=== PATIENT | female | born 1945 | race Caucasian/White ===

== ENCOUNTER 2016-04-17 12:46 | Inpatient (IN) | payer MEDICARE, OTHER ==
[~2016-04-17] VITALS: Ht 172.7 cm; Wt 61.7 kg
[~2016-04-17 12:46] MED LIST: DIPH1TAB36 PO; FEMA2.5T PO; LEVO100T4 PO; OXYC1SOL5 PO; VITA200017 PO
[2016-04-18] MEDS ORDERED: PROPOFOL 200 MG/20 ML AMP IV ONE (08:33)
[2016-04-18] MEDS ORDERED: ePHEDrine/NS 25 MG/5 ML SYR IV ONE (08:33)
[2016-04-18] MEDS ORDERED: PHENYLEPH/NS 1000 MCG/10 ML SYR IV ONE (08:34)
[2016-04-18] MEDS ORDERED: ONDANSETRON HCL 4 MG/2 ML VIAL IV PUSH ONE (08:34)
[2016-04-18] MEDS ORDERED: LACTATED RINGER'S 1000 ML INJ 1,000 ML IV ONE (08:34)
[2016-04-18] MEDS ORDERED: INSULIN HUMAN REGULAR 1,000 UNITS/10 ML VIAL SQ PRN (13:45)
[2016-04-18] MEDS ORDERED: METOPROLOL TARTRATE 25 MG TAB PO PRN (13:45)
[2016-04-18] MEDS ORDERED: SODIUM CHLORID 0.9% 500 ML IV SCH (13:45)
[2016-04-18] MEDS ORDERED: LACTATED RINGER'S 1000 ML IV SCH (13:45)
[2016-04-18] MEDS ORDERED: ceFAZolin 2 GM PREMIX 50 ML IV SCH (14:00)
[2016-04-18] MEDS ORDERED: METRONIDAZOLE 500 MG/100 ML ISONTONIC SOLN IV SCH (14:00)
[2016-04-18] MEDS ORDERED: ALVIMOPAN 12 MG CAPSULE - On Call PO SCH (14:00)
[2016-04-18 14:15] VITALS: BP 131/77; PULSE 70; RESP 18; TEMP 98.8; O2SAT 100
[2016-04-18 14:20] LABS: BASOPHIL # 0.1 TH/MM3 (0-0.2); BASOPHIL % 1.3 % (0.0-2.0); EOSINOPHIL # 0.4 TH/MM3 (0-0.4); EOSINOPHIL % 6.6 % (0.0-4.0); HEMATOCRIT 36.7 % (35.0-46.0); HEMO FLAGS DIFF FINAL; LYMPH % 23.5 % (9.0-44.0); LYMPHOCYTE # 1.5 TH/MM3 (1.0-4.8); MEAN CELL VOLUME 100.1 FL (80.0-100.0); MEAN CORPUSCULAR HEMOGLOBIN 33.7 PG (27.0-34.0); MEAN CORPUSCULAR HGB CONC 33.7 % (32.0-36.0); MONO % 6.8 % (0.0-8.0); NEUT % 61.8 % (16.0-70.0); PLATELET COUNT 285 TH/MM3 (150-450); RED BLOOD COUNT 3.67 MIL/MM3 (4.00-5.30); RED CELL DISTRIBUTION WIDTH 12.9 % (11.6-17.2); WHITE BLOOD COUNT 6.5 TH/MM3 (4.0-11.0)
[2016-04-18] MEDS ORDERED: CHOL1TAB42 PO (14:24)
[2016-04-18] MEDS ORDERED: AMBI5TAB PO (14:25)
[2016-04-18] MEDS ORDERED: OXYC1TAB36 PO (14:26)
[2016-04-18] MEDS ORDERED: LEVO88TA2 PO (14:26)
[2016-04-18] MEDS ORDERED: NALO1TAB2 PO (14:27)
[2016-04-18] MEDS ORDERED: LETR2.5T PO (14:27)
[2016-04-18] MEDS ORDERED: MIRA25TA PO (14:29)
[2016-04-18] MEDS ORDERED: OMEP20TA PO (14:29)
[2016-04-18 14:37] LABS: BICARBONATE 28.1 MEQ/L (21.0-32.0); POTASSIUM 3.6 MEQ/L (3.5-5.1)
[2016-04-18] MEDS ORDERED: GELFOAM SIZE 100 ONE (14:46)
--- NOTE | 2016-04-18 15:06 | RADRPT ---
EXAM DATE/TIME: 04/18/2016 13:53 [place] COMPARISON: No previous studies available for comparison. INDICATIONS : Evaluate for pneumonia, pneumothorax or cummunicable Colon resection MEDICAL HISTORY : None. SURGICAL HISTORY : Mastectomy, left. ENCOUNTER: Initial ACUITY: 1 day PAIN SCORE: 0/10 LOCATION: chest FINDINGS: A single view of the chest demonstrates right Edkfau-d-Lklo superior vena cava. No focal consolidatio n. Remote granulomatous disease. Surgical clips left axilla. Scoliosis CONCLUSION: 1. No active disease. Remote granulomatous disease. Holland Zamora MD on April 18, 2016 at 15:03 Board Certified Radiologist. This report was verified electronically.
[2016-04-18] MEDS ORDERED: ACETAMINOPHEN 1000 MG/100 ML VIAL IV ONE (15:25)
[2016-04-18] MEDS ORDERED: FAMOTIDINE 20 MG/2 ML VIAL ONE (15:25)
[2016-04-18] MEDS ORDERED: fentaNYL CITRATE 250 MCG/5 ML AMP ONE ×2 (15:26→18:19)
[2016-04-18] MEDS ORDERED: MIDAZOLAM HCL 2 MG/2 ML VIAL ONE (15:26)
[2016-04-18] MEDS ORDERED: SUGAMMADEX SODIUM 200 MG/2 ML VIAL IV PUSH ONE ×2 (16:43)
[2016-04-18] MEDS ORDERED: HYDROmorphone HCL PF 1 MG/ML VIAL ONE (18:01)
--- NOTE | 2016-04-18 18:01 | PD.OP ---
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 Operation and Findings: ascites, diffuse peritoneal mets, one biopsied and sent to path. Obstructing tumorous masses in pelvis, RLQ involving small bowel and a large transverse colon mass. 20 serbian TERESA G tube placed for venting. EBL less than 200 ml. Toni Bowers MD Apr 18, 2016 18:01
[2016-04-18] MEDS ORDERED: *HYDROmorphone PF 1 MG VIAL PERIprocedural Use ONLY ONE ×3 (18:08→18:36)
[2016-04-18] MEDS ORDERED: NALOXONE HCL 0.4 MG/ML AMP IV PRN (18:15)
[2016-04-18] MEDS ORDERED: SODIUM CHLORIDE 0.9% FLUSH 5 ML FLUSH IVF PRN (18:15)
[2016-04-18] MEDS ORDERED: ZOLPIDEM TARTRATE 5 MG TAB PO PRN (18:15)
[2016-04-18] MEDS ORDERED: Post-op Orders (for Pharmacy) MISC XX ONE (18:15)
[2016-04-18] MEDS ORDERED: diphenhydrAMINE HCL 50 MG/ML VIAL IVP PRN (18:15)
[2016-04-18] MEDS ORDERED: HYDROmorphone HCL PF 1 MG/ML VIAL IV PUSH PRN (18:30)
[2016-04-18] MEDS ORDERED: LORazepam 2 MG/ML VIAL IV PUSH PRN (18:30)
[2016-04-18] MEDS: LACTATED RINGER'S 1000 ML INJ 1,000 ML IV SCH (18:30)
[2016-04-18] MEDS ORDERED: *hydrOXYzine 25 MG VIAL PERIprocedural Use ONLY IM ONE (18:48)
[2016-04-18] MEDS: MORPHINE SULFATE 30 MG/30 ML PCA IV SCH ×2 (19:05→23:19)
[2016-04-18] MEDS: PANTOPRAZOLE SODIUM 40 MG VIAL IV PUSH SCH (19:30)
[2016-04-18 20:10] VITALS: BP 91/52; PULSE 78; RESP 17; TEMP 96.2; O2SAT 94
[2016-04-18 20:46] VITALS: O2SAT 94
[2016-04-18] MEDS: SODIUM CHLORIDE 0.9% FLUSH 5 ML FLUSH IVF SCH (21:00)
[2016-04-18 21:15] VITALS: RESP 18
[2016-04-18] MEDS: PCA - TOTAL MG MORPHINE DELIVERED PER SHIFT SCH (22:00)
[2016-04-18 23:52] VITALS: BP 99/57; PULSE 74; RESP 17; TEMP 97; O2SAT 95
[2016-04-19] VITALS (9 sets, daily range): BP systolic 105–139; BP diastolic 57–77; PULSE 71–83; RESP 16–20; TEMP 96.8–98.4; O2SAT 95–98
[2016-04-19] MEDS: LACTATED RINGER'S 1000 ML INJ 1,000 ML IV SCH ×2 (04:02→12:45)
[2016-04-19] MEDS: ONDANSETRON HCL 4 MG/2 ML VIAL IV PRN ×4 (04:28→19:36)
[2016-04-19] MEDS: PCA - TOTAL MG MORPHINE DELIVERED PER SHIFT SCH ×3 (05:35→22:00)
[2016-04-19] MEDS: LEVOTHYROXINE SODIUM 88 MCG TAB PO SCH (05:37)
[2016-04-19] MEDS: MORPHINE SULFATE 30 MG/30 ML PCA IV SCH ×3 (05:40→17:24)
[2016-04-19 05:47] LABS: AUTOMATED NEUTROPHIL # 6.5 TH/MM3 (1.8-7.7); BASOPHIL % 0.4 % (0.0-2.0); HEMATOCRIT 29.5 % (35.0-46.0); HEMO FLAGS DIFF FINAL; LYMPH % 8.7 % (9.0-44.0); LYMPHOCYTE # 0.7 TH/MM3 (1.0-4.8); MEAN CELL VOLUME 100.8 FL (80.0-100.0); MEAN CORPUSCULAR HEMOGLOBIN 33.9 PG (27.0-34.0); MEAN CORPUSCULAR HGB CONC 33.6 % (32.0-36.0); MONO % 4.8 % (0.0-8.0); NEUT % 86.1 % (16.0-70.0); PLATELET COUNT 240 TH/MM3 (150-450); RED BLOOD COUNT 2.93 MIL/MM3 (4.00-5.30); RED CELL DISTRIBUTION WIDTH 12.6 % (11.6-17.2); WHITE BLOOD COUNT 7.5 TH/MM3 (4.0-11.0)
[2016-04-19 06:18] LABS: BICARBONATE 20.7 MEQ/L (21.0-32.0); POTASSIUM 4.2 MEQ/L (3.5-5.1)
[2016-04-19] MEDS: ALVIMOPAN 12 MG CAPSULE - Post-op dosing PO SCH ×2 (07:59→19:35)
[2016-04-19] MEDS: CHOLECALCIFEROL (VIT D3) 1000 UNIT TAB PO SCH (07:59)
[2016-04-19] MEDS ORDERED: NALOXEGOL 25 MG PO SCH ×2 (09:00)
[2016-04-19] MEDS ORDERED: MIRABEGRON 25 MG PO SCH (09:00)
[2016-04-19] MEDS ORDERED: LETROZOLE 2.5 MG PO SCH (09:00)
[2016-04-19] MEDS ORDERED: NON-FORMULARY DRUG (Mirabegron (Myrbetriq) 25 MG) PO SCH (09:00)
[2016-04-19] MEDS ORDERED: PT:LETROZOLE 2.5 MG PO SCH (09:00)
--- NOTE | 2016-04-19 11:16 | HHI.PR ---
Subjective Subjective Notes awake, alert. Has met with Dr Leroy of palliative care. Objective Vitals/I&O Vital Signs Date Time Temp Pulse Resp B/P Pulse Ox O2 Delivery O2 Flow Rate FiO2 04/19/16 09:15 98 21 04/19/16 08:00 97.3 72 18 105/57 04/18/16 19:45 Nasal Cannula 2 Labs Laboratory Tests Test 04/18/16 04/19/16 14:05 04:16 White Blood Count 6.5 7.5 Red Blood Count 3.67 2.93 Hemoglobin 12.4 9.9 Hematocrit 36.7 29.5 Mean Corpuscular Volume 100.1 100.8 Mean Corpuscular Hemoglobin 33.7 33.9 Mean Corpuscular Hemoglobin 33.7 33.6 Concent Red Cell Distribution Width 12.9 12.6 Platelet Count 285 240 Mean Platelet Volume 8.0 8.2 Neutrophils (%) (Auto) 61.8 86.1 Lymphocytes (%) (Auto) 23.5 8.7 Monocytes (%) (Auto) 6.8 4.8 Eosinophils (%) (Auto) 6.6 0.0 Basophils (%) (Auto) 1.3 0.4 Neutrophils # (Auto) 4.0 6.5 Lymphocytes # (Auto) 1.5 0.7 Monocytes # (Auto) 0.4 0.4 Eosinophils # (Auto) 0.4 0.0 Basophils # (Auto) 0.1 0.0 CBC Comment DIFF FINAL DIFF FINAL Differential Comment Sodium Level 138 138 Potassium Level 3.6 4.2 Chloride Level 98 101 Carbon Dioxide Level 28.1 20.7 Anion Gap 12 16 Blood Urea Nitrogen 15 10 Creatinine 0.67 0.42 Estimat Glomerular Filtration 87 149 Rate Random Glucose 80 108 Calcium Level 9.8 8.1 Blood Type A POSITIVE Antibody Screen NEGATIVE Cardiovascular: Regular Lungs: Clear Abdomen: Non-distended, Other (dressing dry with minimal drainage. G tube dressing dry.), Post-op tenderness Extremities: No edema A/P Assessment and Plan POD 1 exp lap G tube, unresectable diffuse mets cancer with obstruction, large tumorous masses RLQ involving SB and cecum, transverse colon and sigmoid colon. Palliative care. DNR. Pain control. Hospice evaluation. Toni Bowers MD Apr 19, 2016 11:16
--- NOTE | 2016-04-19 11:17 | PD.CONS ---
Consult Service Palliative Care Consult Requested By Dr. Bowers . Primary Care Physician Nasim Patterson DO . Reason for Consultation a. To assist with evaluation and management of symptoms including: Pain, nausea b. To assist medical decision maker(s) with: better understanding of current medical conditions; weighing benefits/burdens of medical treatment options; making medical treatment decisions. . HPI History of Present Illness This 70-year-old female, with a past history of papillary serous uterine cancer , prior surgery and chemotherapy in 2014, and a remote history of breast cancer , was admitted and taken to the operating room because of a near total bowel obstruction. The patient initially presented in February 2014 with postmenopausal bleeding, and was ultimately found to have stage III C papillary serous carcinoma, with positive nodes and positive peritoneal nodules during the initial surgery. She was treated with Taxol and carboplatin for 6 cycles, and was followed by [facility] oncology until August 2015. The patient reports that because of insurance changes she then was followed by her primary doctor. The patient began developing worsening abdominal and pelvic pain in the summer of 2015, and that has steadily worsened over the past 2 or 3 months. The patient reports she underwent colonoscopy, colonography, and [address] or PET scans over the last 5 months. As her pain worsened, she was referred to Dr. Mendoza a few days ago. A barium enema was ordered, and her colon was essentially obstructed in the sigmoid area. She was taken to the operating room yesterday, where 3 large areas of mass involving bowel was noted, and innumerable omental and peritoneal nodules were present. Biopsies were sent. After discussion with the patient and her , who adamantly did not want an ostomy, the surgery was concluded after a G-tube was placed (for possible decompression in the future). The patient had been using oxycodone for her pain at home, but says it was inadequate. Now, postop day #1, she reports that her pain is "not that bad " and she does not have nausea at this time. Palliative Care was consulted to assist with symptom management, and to enter into discussions with family and the patient regarding her illnesses, the prognosis, and the benefits and burdens of the various treatment options. . Function/Cognitive Trajectory The patient has been declining over the past several months. She has lost a few pounds, and has gotten weaker. She was limited in her functionality because moving around would make the abdominal and pelvic pain worse, and her "was doing pretty much everything for me." . Review of Systems Constitutional: COMPLAINS OF: Weight loss Endocrine: DENIES: Polyuria Eyes: DENIES: Eye inflammation Ears, nose, mouth, throat: DENIES: Epistaxis Respiratory: DENIES: Cough, Shortness of breath Cardiovascular: COMPLAINS OF: Lower Extremity Edema, DENIES: Chest pain, Dyspnea on Exertion Gastrointestinal: COMPLAINS OF: Abdominal pain, Nausea, Vomiting, Bloating, DENIES: Diarrhea, Vomiting blood Genitourinary: COMPLAINS OF: Hematuria (a few episodes a couple months ago) Musculoskeletal: COMPLAINS OF: Back pain Integumentary: DENIES: Rash Hematologic/Lymphatics: DENIES: Bruising Immunologic/Allergic: DENIES: Urticaria Neurologic: DENIES: Localized weakness, Seizures Psychiatric: DENIES: Hallucinations, Agitation Past Family Social History Coded Allergies: No Known Allergies (Unverified , 04/18/16) Past Medical History * Obstructing colon mass, surgery 04/18/16 * Diffuse pelvic/abdominal metastatic disease * History of papillary serous carcinoma February 2014, s/p surgery and 6 rounds of Taxol/carboplatin * Worsening abdominal pain and debility for several months * History of breast cancer 2012 . Past Surgical History * Esophageal dilatation 2002 * Mastectomy 2012 * Removal of implant due to infection 2013 * Skin flap to open chest wound 2014 * Left breast lumpectomy * Hysterectomy, BSO, and resection of pelvic nodes and peritoneal nodules February 2014 * Exploratory laparotomy, G-tube 04/18/16 . Reported Medications Oxycodone . Current Medications Medications (Trade) Dose Ordered Sig/Iraj Route Start Time Stop Time Status Last Admin Alvimopan 12 mg 12 mg BID PO 04/19/16 09:00 04/25/16 21:01 04/19/16 07:59 (Lr 1000 ml Inj) 1,000 ml @ 100 mls/hr Q10H IV 04/18/16 18:02 04/19/16 04:02 (NS Flush) 2 ml UNSCH PRN IVF 04/18/16 18:15 (NS Flush) 2 ml BID IVF 04/18/16 21:00 (Percocet 5-325 Mg) 2 tab Q4H PRN PO 04/18/16 18:15 (Zofran Inj) 4 mg Q4H PRN IV 04/18/16 18:15 04/19/16 04:28 (Benadryl Inj) 50 mg Q6H PRN IVP 04/18/16 18:15 (Narcan Inj) 0.4 mg UNSCH PRN IV 04/18/16 18:15 (Morphine 1 Mg/ ml BUSINESS SUPPORT ASSOCIATE) 30 mg UNSCH IV 04/18/16 18:15 04/19/16 05:40 BUSINESS SUPPORT ASSOCIATE Dosage Infused (Pha) 1 Q8HR .XX 04/18/16 22:00 04/19/16 05:35 (Synthroid) 88 mcg DAILY@06 PO 04/19/16 06:00 (Ambien) 5 mg HS PRN PO 04/18/16 18:15 04/18/16 21:16 (Vitamin D3) 2,000 units DAILY PO 04/19/16 09:00 04/19/16 07:59 (Protonix Inj) 40 mg Q24H IV PUSH 04/18/16 20:00 04/18/16 19:30 (Dilaudid Pf Inj) 1 mg Q4H PRN IV PUSH 04/18/16 18:30 (Ativan Inj) 1 mg Q4H PRN IV PUSH 04/18/16 18:30 Patient Own Medication PT OWN MED: DAILY PO 04/19/16 09:00 Hold Patient Own Medication PT OWN MED: MIRABEG... DAILY PO 04/19/16 09:00 Hold Patient Own Medication PT OWN MED: MOVANTIK(NALOXEGOL) 25 MG PO DAILY DAILY PO 04/19/16 09:00 Hold Family History The patient's father at age 78 of complications from a stroke. Her mother of breast cancer at age 63. One brother of pancreatic cancer, and another brother of complications of polio at the age of 54. A maternal aunt also had breast cancer. .. Substance Use Tobacco: None. Alcohol: Occasional. Prescription med abuse: None. Illicits: None. . Psychosocial History The patient was born in [place], grew up in [place], and moved to [place] in the . She has been 4 times, currently for 21 years: "I finally got it right." She has no children, and her has no children. 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 . Spiritual/Cultural Factors The patient has a Cheondoism background, but has been unaffiliated with any area anglican or clergy in recent years. She does want to see a fire claims adjuster now. . Living Will: Never completed Health Care Surrogate: Never completed Durable Power of Footwear Machinery Instructor: Never completed Today's verbally stated goals: The patient wants to transition to comfort focused care now, and would like to speak with hospice. She does not want to be on life support or be resuscitated. . Family/friends goals: The patient's supports her goals. . Ethical and Legal Issues There are no ethical issues that would impact her care or decision-making at this time. The patient has capacity for decision-making. When she loses that capacity as her disease progresses, her will be the decision-making proxy. . Physical Exam Vital Signs Date Time Temp Pulse Resp B/P Pulse Ox O2 Delivery O2 Flow Rate FiO2 04/19/16 09:15 98 21 04/19/16 08:00 97.3 72 18 105/57 98 04/19/16 06:11 16 04/19/16 06:00 16 04/19/16 05:40 16 04/19/16 05:35 16 04/19/16 04:00 96.9 83 17 119/68 96 04/18/16 23:52 97.0 74 17 99/57 95 04/18/16 23:19 18 04/18/16 22:00 16 04/18/16 21:15 18 04/18/16 20:46 94 21 04/18/16 20:10 96.2 78 17 91/52 94 04/18/16 19:45 97.6 81 14 124/76 99 Nasal Cannula 2 04/18/16 19:30 79 14 122/85 100 Nasal Cannula 2 04/18/16 19:15 78 15 132/71 99 Nasal Cannula 2 04/18/16 19:05 14 04/18/16 19:00 74 15 134/74 99 Nasal Cannula 2 04/18/16 18:45 71 15 133/78 99 Nasal Cannula 2 04/18/16 18:30 78 16 142/84 99 Nasal Cannula 4 04/18/16 18:15 76 16 137/76 99 Nasal Cannula 4 04/18/16 18:00 96.9 86 16 128/86 100 Simple Mask 8 04/18/16 14:15 98.8 70 18 131/77 100 04/18/16 04/19/16 19:00 07:00 Intake Total 1300 ml 2902 ml Output Total 175 ml 525 ml Balance 1125 ml 2377 ml Intake Oral 720 ml IV Total 2182 ml Other 1300 ml Output Urine Total 75 ml 525 ml Estimated Blood Loss 100 ml Exam CONSTITUTIONAL/GENERAL: This is a thin patient, in no apparent distress. TUBES/LINES/DRAINS: IV access, G-tube, SCDs, Greenberg SKIN: No jaundice, rashes, or lesions. Ecchymoses on upper extremities. No wounds seen anteriorly. Skin temperature appropriate. Not diaphoretic. HEAD: Atraumatic. Normocephalic. EYES: Pupils equal and round and reactive. Extraocular motions intact. No scleral icterus. No injection or drainage. Fundi not examined. ENT: Hearing grossly normal. Nose without bleeding or purulent drainage. Throat without visible erythema, exudates, masses, or lesions. NECK: Trachea midline. Supple, nontender. No palpable thyroid enlargement or nodularity. CARDIOVASCULAR: Regular rate and rhythm without murmurs, gallops, or rubs. No JVD. Peripheral pulses symmetric. RESPIRATORY/CHEST: Symmetric, unlabored respirations. Clear to auscultation. Breath sounds equal bilaterally. No wheezes, rales, or rhonchi. GASTROINTESTINAL: Abdomen soft, and nondistended. No hepato-splenomegaly, and a bandage covers the midline incision. No guarding. Bowel sounds are diminished but present. GENITOURINARY: Without palpable bladder distension. Greenberg catheter in place. MUSCULOSKELETAL: Extremities without clubbing, cyanosis, or edema. No joint tenderness or effusion noted. No calf tenderness. No mottling or clubbing. LYMPHATICS: No palpable cervical or supraclavicular adenopathy. NEUROLOGICAL: Awake and alert. Motor and sensory grossly within normal limits. Follows commands. Cognitively sharp. Moves all extremities. PSYCHIATRIC: No obvious anxiety/depression. no apparent hallucinations or other psychotic thought process. . Diagnostic Tests Laboratory Laboratory Tests Test 04/18/16 04/19/16 14:05 04:16 White Blood Count 6.5 TH/MM3 7.5 TH/MM3 (4.0-11.0) (4.0-11.0) Red Blood Count 3.67 MIL/MM3 2.93 MIL/MM3 (4.00-5.30) (4.00-5.30) Hemoglobin 12.4 GM/DL 9.9 GM/DL (11.6-15.3) (11.6-15.3) Hematocrit 36.7 % 29.5 % (35.0-46.0) (35.0-46.0) Mean Corpuscular Volume 100.1 FL 100.8 FL (80.0-100.0) (80.0-100.0) Mean Corpuscular Hemoglobin 33.7 PG 33.9 PG (27.0-34.0) (27.0-34.0) Mean Corpuscular Hemoglobin 33.7 % 33.6 % Concent (32.0-36.0) (32.0-36.0) Red Cell Distribution Width 12.9 % 12.6 % (11.6-17.2) (11.6-17.2) Platelet Count 285 TH/MM3 240 TH/MM3 (150-450) (150-450) Mean Platelet Volume 8.0 FL 8.2 FL (7.0-11.0) (7.0-11.0) Neutrophils (%) (Auto) 61.8 % 86.1 % (16.0-70.0) (16.0-70.0) Lymphocytes (%) (Auto) 23.5 % 8.7 % (9.0-44.0) (9.0-44.0) Monocytes (%) (Auto) 6.8 % (0.0-8.0) 4.8 % (0.0-8.0) Eosinophils (%) (Auto) 6.6 % (0.0-4.0) 0.0 % (0.0-4.0) Basophils (%) (Auto) 1.3 % (0.0-2.0) 0.4 % (0.0-2.0) Neutrophils # (Auto) 4.0 TH/MM3 6.5 TH/MM3 (1.8-7.7) (1.8-7.7) Lymphocytes # (Auto) 1.5 TH/MM3 0.7 TH/MM3 (1.0-4.8) (1.0-4.8) Monocytes # (Auto) 0.4 TH/MM3 0.4 TH/MM3 (0-0.9) (0-0.9) Eosinophils # (Auto) 0.4 TH/MM3 0.0 TH/MM3 (0-0.4) (0-0.4) Basophils # (Auto) 0.1 TH/MM3 0.0 TH/MM3 (0-0.2) (0-0.2) CBC Comment DIFF FINAL DIFF FINAL Differential Comment Sodium Level 138 MEQ/L 138 MEQ/L (136-145) (136-145) Potassium Level 3.6 MEQ/L 4.2 MEQ/L (3.5-5.1) (3.5-5.1) Chloride Level 98 MEQ/L 101 MEQ/L (98-107) (98-107) Carbon Dioxide Level 28.1 MEQ/L 20.7 MEQ/L (21.0-32.0) (21.0-32.0) Anion Gap 12 MEQ/L (5-15) 16 MEQ/L (5-15) Blood Urea Nitrogen 15 MG/DL (7-18) 10 MG/DL (7-18) Creatinine 0.67 MG/DL 0.42 MG/DL (0.50-1.00) (0.50-1.00) Estimat Glomerular Filtration 87 ML/MIN (>89) 149 ML/MIN Rate (>89) Random Glucose 80 MG/DL 108 MG/DL (74-106) (74-106) Calcium Level 9.8 MG/DL 8.1 MG/DL (8.5-10.1) (8.5-10.1) Blood Type A POSITIVE Antibody Screen NEGATIVE Result Diagram: 04/19/16 0416 04/19/16 0416 Imaging Last Impressions Chest X-Ray 04/18/16 0000 Signed Impressions: Service Date/Time: April 13:53 - CONCLUSION: 1. No active disease. Remote granulomatous disease. Holalnd Zamora MD . Procedures Exploratory laparotomy, G-tube placement 04/18/16 . Patient/Family Conference Present at Family Conference: Patient's , Kavin . Family Conference Time (mins): 41 Family Conference Location: Bedside Issues Discussed: * Palliative care role, purpose, approach * Hospice care role, purpose, approach * Additional medical, psychosocial, and spiritual history * Patients general health, functional status, and cognitive changes in the months leading up to the current hospitalization * Patient/family understanding of the current medical problems * Patient/family understanding of prognosis * Patients goals of care as best understood from advance directives and/or conversations and/or values * Current medical treatment options and benefits/burdens of those options * Likely scenarios comparing ongoing aggressive care with a transition to comfort measures only * Questions answered to the best of my ability * Palliative care contact information provided The patient and her want to focus on comfort now. . Assessment and Plan Disease Oriented Problem List: (1) obstructing colon mass, surgery 04/18/16 (2) diffuse pelvic/abdominal metastatic disease (3) history of papillary serous carcinoma February 2014, s/p surgery and 6 cycles of Taxol/carboplatin (4) worsening abdominal pain and debility for several months (5) remote history of breast cancer Symptom Scale: (1) nausea (2) pain Pertinent Non-Medical Issues Psychosocial: , no children, retired from [employer]. Spiritual: Cheondoism background, currently unaffiliated. She does want a visit from the [facility]. Legal: The patient has capacity for decision-making. When she loses that capacity as her disease progresses, her will be the decision-making proxy. Ethical issues impacting care: None. . Important Contacts : Kavin Gonzales Home: . Prognosis The patient is terminal, likely with just weeks or couple months to live. . Code Status: No Code Plan * DO NOT RESUSCITATE, per request of patient and 04/19/16 * DECISION-MAKING: The patient has capacity for decision-making. When she loses that capacity as her disease progresses, her will be the decision- making proxy. * GOALS: The patient desires a transition to comfort care, and gauging hospice services now for their help when she transitions home from the hospital. * SYMPTOMS: Pain is the main issue at this time, and is being managed postoperatively. Hospice will assist in symptom management as the patient is discharged from the hospital. Note: She is at risk for recurrent bowel obstructions, and the G-tube will be available for decompression. * Hospice consult placed * Request for a [facility] visit entered * Palliative Care will continue to follow the patient during this hospitalization. . Time Spent Total Floor Time (mins): 78 Face to Face Time (mins): 50 >50% Counseling/Coord of Care: Yes (d/w Dr. Bowers) Thank you for the opportunity to participate in the care of Ms. Gonzales. Attestation To help prompt me to consider important information that might be impacting today's encounter and assessment, information from prior notes written by myself or my colleagues may have been "brought forward" into today's note. My signature on this note, however, is an attestation that I personally performed the exam, history, and/or decision-making noted today, and, unless otherwise indicated, the interactions with patient, family, and staff as well as the review of records all occurred today. I also attest that the listed assessment and stated plan reflect my best clinical judgment today based on the combination of historical information, prior notes, and today's exam/ interactions. When time spent is documented, it refers only to time spent today by the signer, or if indicated, combined time spent today by collaborating physician/nurse practitioner. Sherron Leroy MD Apr 19, 2016 11:17
[2016-04-19] MEDS: PANTOPRAZOLE SODIUM 40 MG VIAL IV PUSH SCH (19:35)
[2016-04-19] MEDS: SODIUM CHLORIDE 0.9% FLUSH 5 ML FLUSH IVF SCH ×2 (19:36→20:03)
--- NOTE | 2016-04-19 20:02 | EKG ---
Date Performed: 04/18/2016 Time Performed: 14:13:28 PTAGE: 70 years EKG: Sinus rhythm INFERIOR MYOCARDIAL INFARCTION , PROBABLY OLD ABNORMAL ECG PREVIOUS TRACING : 03/17/2014 06.21 Compared to prior tracing no significant change DOCTOR: David Burch Interpretating Date/Time 04/19/2016 20:00:48
[2016-04-20] VITALS (7 sets, daily range): BP systolic 106–137; BP diastolic 61–77; PULSE 66–77; RESP 16–21; TEMP 96.4–99.3; O2SAT 95–97
[2016-04-20] MEDS: LACTATED RINGER'S 1000 ML INJ 1,000 ML IV SCH ×3 (00:20→18:09)
[2016-04-20] MEDS: LEVOTHYROXINE SODIUM 88 MCG TAB PO SCH (04:57)
[2016-04-20] MEDS: MORPHINE SULFATE 30 MG/30 ML PCA IV SCH ×3 (05:05→21:01)
[2016-04-20] MEDS: PCA - TOTAL MG MORPHINE DELIVERED PER SHIFT SCH ×3 (05:10→21:03)
[2016-04-20] MEDS: CHOLECALCIFEROL (VIT D3) 1000 UNIT TAB PO SCH (08:04)
[2016-04-20] MEDS: ALVIMOPAN 12 MG CAPSULE - Post-op dosing PO SCH ×2 (08:04→21:00)
[2016-04-20] MEDS: SODIUM CHLORIDE 0.9% FLUSH 5 ML FLUSH IVF SCH ×2 (08:05→21:03)
[2016-04-20] MEDS ORDERED: METO10TA PO (13:38)
--- NOTE | 2016-04-20 16:29 | HHI.PR ---
Subjective Subjective Notes Minimal pain; hurts around G-tube site. Objective Vitals/I&O Vital Signs Date Time Temp Pulse Resp B/P Pulse Ox O2 Delivery O2 Flow Rate FiO2 04/20/16 14:00 16 04/20/16 12:00 97.0 66 129/71 96 04/20/16 10:03 Nasal Cannula 04/19/16 18:03 21 04/18/16 19:45 2 Labs Laboratory Tests Test 04/20/16 04:08 Creatinine 0.50 Estimat Glomerular Filtration 122 Rate Lungs: Clear Abdomen: Non-distended Narrative Exam Dressing clean and dry. A/P Assessment and Plan Assessment and Plan POD 2 exp lap G tube, unresectable diffuse mets cancer with obstruction, large tumorous masses RLQ involving SB and cecum, transverse colon and sigmoid colon. Will remove soriano and cap G-tube as tolerated. Palliative care. DNR. Pain control. Hospice evaluation. Discussed with both patient and . Shawn Pichardo MD Apr 20, 2016 16:29
[2016-04-20] MEDS ORDERED: ENOXAPARIN SODIUM 40 MG/0.4 ML SYRINGE SQ SCH (18:00)
[2016-04-20] MEDS ORDERED: PANTOPRAZOLE SOD 40 MG DELAYED RELEASE TAB PO SCH (20:00)
[2016-04-21 00:02] VITALS: BP 118/79; PULSE 72; RESP 20; TEMP 99.1; O2SAT 96
[2016-04-21 04:00] VITALS: BP 124/67; PULSE 75; RESP 21; TEMP 98.7; O2SAT 95
[2016-04-21] MEDS: PCA - TOTAL MG MORPHINE DELIVERED PER SHIFT SCH ×2 (06:00→11:47)
[2016-04-21] MEDS: LEVOTHYROXINE SODIUM 88 MCG TAB PO SCH (06:19)
[2016-04-21] MEDS: LACTATED RINGER'S 1000 ML INJ 1,000 ML IV SCH (06:19)
[2016-04-21] MEDS: SODIUM CHLORIDE 0.9% FLUSH 5 ML FLUSH IVF SCH (07:37)
[2016-04-21] MEDS: CHOLECALCIFEROL (VIT D3) 1000 UNIT TAB PO SCH (07:37)
[2016-04-21] MEDS: ALVIMOPAN 12 MG CAPSULE - Post-op dosing PO SCH (07:37)
[2016-04-21 08:00] VITALS: BP 124/71; PULSE 69; RESP 17; TEMP 99.2; O2SAT 95
[2016-04-21 08:20] VITALS: O2SAT 93
[2016-04-21] MEDS: oxyCODONE/ACETAMINOPHEN 5 MG/325 MG TAB PO PRN ×2 (11:21→15:20)
[2016-04-21 12:00] VITALS: BP 150/81; PULSE 86; RESP 20; TEMP 97.6; O2SAT 94
--- NOTE | 2016-04-21 15:08 | HHI.DS ---
Discharge Summary Admission Date Apr 18, 2016 at 13:18 Admitting Diagnosis Brief History Admitted for exploration on April CBC/BMP: 04/19/16 0416 04/20/16 0408 Significant Findings Laboratory Tests Test 04/19/16 04:16 Red Blood Count 2.93 MIL/MM3 (4.00-5.30) Hemoglobin 9.9 GM/DL (11.6-15.3) Hematocrit 29.5 % (35.0-46.0) Mean Corpuscular Volume 100.8 FL (80.0-100.0) Neutrophils (%) (Auto) 86.1 % (16.0-70.0) Lymphocytes (%) (Auto) 8.7 % (9.0-44.0) Lymphocytes # (Auto) 0.7 TH/MM3 (1.0-4.8) Carbon Dioxide Level 20.7 MEQ/L (21.0-32.0) Anion Gap 16 MEQ/L (5-15) Creatinine 0.42 MG/DL (0.50-1.00) Random Glucose 108 MG/DL (74-106) Calcium Level 8.1 MG/DL (8.5-10.1) PE at Discharge Dressing clean and dry. Hospital Course Underwent exploration with G-tube placement for carcinomatosis. Greenberg D/C'd on POD #2 and G-tube capped. Tolerating some PO's; using PO pain meds on POD #3. Incision clean and dry; G-tube site intact. Pt Condition on Discharge: Fair Discharge Disposition: Discharge Home Discharge Instructions DIET: Follow Instructions for: As Tolerated, No Restrictions Activities you can perform: Shower Only-No Bath Activities to Avoid: Strenuous Activity Shawn Pichardo MD Apr 21, 2016 15:08
[2016-04-21] MEDS ORDERED: PERC10TA27 PO (15:09)
[2016-04-21] MEDS ORDERED: REGL10TA5 PO (15:11)
--- NOTE | 2016-04-22 10:24 | MP ---
cc: HECTOR DAIGLE M.D. DATE OF SURGERY: 04/18/2016 PREOPERATIVE DIAGNOSIS Obstructed sigmoid colon. POSTOPERATIVE DIAGNOSIS Diffuse metastatic cancer with obstructing masses right lower quadrant pelvis and near obstructing transverse colon mass. Obstruction involving both small bowel and colon. Peritoneal metastases. PROCEDURE Exploratory laparotomy, biopsy peritoneal metastasis, TERESA gastrostomy tube placement. SURGEON Dr. Hector Daigle LUMBER MOVER SURGEON Dr. Victor Manuel Rush ANESTHESIA General. INDICATIONS An unfortunate 70-year-old with a history of uterine and breast cancer who has been evaluated for almost a year for lower abdominal pain. She was discovered to have an obstructed sigmoid colon with no contrast. Attempt at barium enema could get through the sigmoid colon. She was brought to the hospital for exploration, sigmoid resection and possible colostomy. INTRAOPERATIVE FINDINGS As discussed above, diffuse intraperitoneal metastatic disease. Large tumorous masses in the pelvis, right lower quadrant involving small bowel and colon and a large mass in the transverse colon abutting the greater curvature of the stomach. A 20 Albanian TERESA gastrostomy tube was placed. Ascites was also encountered, several hundred cc's. ESTIMATED BLOOD LOSS Less than 200 mL. DESCRIPTION OF PROCEDURE IN DETAIL The patient was identified as Christine Gonzales, taken to the operating room and placed in supine position. Sequential compression devices were placed on bilateral lower extremities. Following induction of adequate general endotracheal anesthesia a Greenberg catheter was placed and the patient was placed in the dorsal lithotomy position in [facility]. A timeout procedure was performed. Following completion of the timeout procedure to everyone's satisfaction within the room and sterile prep of the abdomen, a midline incision starting above the umbilicus down to the pubic symphysis was carried out with a scalpel. Hemostasis was controlled with electrocautery. Dissection continued posteriorly through the midline fascia. The peritoneum was entered with a hemostat and yellow ascitic fluid was encountered. The peritoneal incision was opened the length of the skin incision and ascites was suctioned out. Immediately multiple peritoneal metastases were palpated. The large tumorous mass on the left lower quadrant was identified. The sigmoid colon was just socked in, in the left lower quadrant and pelvis. Further evaluation demonstrated a large tumorous mass near-obstructing in the transverse colon abutting the greater curvature of the stomach. There was a large tumorous mass in the right lower quadrant involving the cecum as well as the small bowel. Multiple peritoneal metastases along the mesentery of the small bowel were also encountered. At this time I scrubbed out of the operating room and went to the family waiting room and discussed my findings with the patient's . We discussed what the patient wanted. She had made it clear that she preferred not to have an ostomy due to the fact that this was likely not a recoverable situation. He indicated that he would respect her wishes and indicated that he would trust my judgment on what to do during surgery. At this time I returned to the operating room and was joined by my associate Dr. Victor Manuel Rush. We explored the abdomen and took a biopsy of a peritoneal metastasis which was sent for permanent section. He agreed that there was no real good option for a bowel diversion with an ostomy and therefore we decided to place an TERESA gastrostomy tube. This could be used to vent the stomach so she did not have nausea and emesis. A pursestring suture in the anterior wall of the stomach was made with 3-0 silk suture. Through a separate stab incision in the left upper quadrant a 20-Albanian TERESA gastrostomy tube was passed. The balloon was tested with 10 cc of water and no leak was discovered. A gastrotomy was made in the center of the pursestring suture and then a gastrostomy tube was placed into the stomach and the balloon was inflated. The pursestring suture was tied down and sutured to the anterior peritoneum adjacent to the tube exit site. Two additional sutures of 3-0 silk were placed to fasten the stomach to the peritoneal wall. The flange was put snug onto the abdominal wall skin and a 0 silk tie was placed from the flange to the tube. Attention was then turned to closure of the abdominal wound. There was no omentum. The midline incision was closed with running #1 looped PDS suture starting from top to bottom and bottom to top, meeting in the middle. The subcutaneous layer was irrigated and closed with interrupted 2-0 Vicryl suture and the skin approximated with 4-0 Monocryl subcuticular suture. A hydrocolloid dressing was placed beneath the G-tube to protect the skin and a dry sterile dressing of [place] was placed over the midline incision. The patient tolerated the procedure without apparent complication. Sponge, needle and instrument counts were correct at the end of the case. MD WILLOW Conway /6:10 PM /9:05 AM
== END 2016-04-21 16:01 | disposition home or self-care (01) | DRG 327 ==
LOC: HSDI 04-18 13:18 → N07B 04-18 20:03
PROVIDERS: ADMIT Surgery Trauma Surgery; ATTEND Surgery Trauma Surgery
PROC: 0DBV0ZX Excision of Mesentery, Open Approach, Diagnostic (ICD-10-PCS; 2016-04-18)
PROC: 0WJG0ZZ Inspection of Peritoneal Cavity, Open Approach (ICD-10-PCS; 2016-04-18)
PROC: 0D9600Z Drainage of Stomach with Drainage Device, Open Approach (ICD-10-PCS; principal; 2016-04-18 15:46)
DX: C78.6 Secondary malignant neoplasm of retroperitoneum and peritoneum (principal); K56.60 Unspecified intestinal obstruction; R18.8 Other ascites; C79.89 Secondary malignant neoplasm of other specified sites; C78.5 Secondary malignant neoplasm of large intestine and rectum; C78.4 Secondary malignant neoplasm of small intestine; Z85.3 Personal history of malignant neoplasm of breast; Z90.10 Acquired absence of unspecified breast and nipple; Z92.21 Personal history of antineoplastic chemotherapy; Z66 Do not resuscitate; Z51.5 Encounter for palliative care; Z80.3 Family history of malignant neoplasm of breast; Z80.0 Family history of malignant neoplasm of digestive organs; Z84.89 Family history of other specified conditions
CPT/HCPCS: 71010; 80048; 82565; 85025; 86850; 86900; 86901; 88305; 93005; 94150; C9113; J0131; J0690; J1170; J1642; J1650; J2250; J2270; J2370; J2405; J3010; J3410; J7120